=== PATIENT | male | born 1975 | race Caucasian/White ===

== ENCOUNTER 2016-03-15 09:31 | Day surgery (SDC) | payer OTHER ==
[2016-03-15] MEDS ORDERED: Lidocaine PF 1% 5 mL Inj ONE (09:32)
[2016-03-15] MEDS ORDERED: Dexamethasone 10 mg/mL Inj ONE (09:32)
[2016-03-15] MEDS ORDERED: Iohexol 240 mg/mL 10 mL Inj ONE (09:32)
[2016-03-15 10:36] VITALS: BP 132/91; PULSE 78; O2SAT 96
[2016-03-15] MEDS ORDERED: ATEN50TA PO (10:40)
[2016-03-15] MEDS ORDERED: BUPR150T8 PO (10:40)
--- NOTE | 2016-03-15 16:37 | PCM.PROC ---
Procedure Note Date of Service: Mar 15, 2016 Pre Procedure Diagnosis: PROCEDURE: RIGHT C6 transforaminal epidural steroid injection PRE-PROCEDURE DIAGNOSIS: Cervical radiculopathy POST-PROCEDURE DIAGNOSIS: same INDICATION: 40-year-old gentleman with right-sided neck and arm pain consistent with cervical radiculopathy PERFORMED BY: Aditya Conner MD DESCRIPTION OF PROCEDURE: Patient was met in the holding area. Consent was signed, site was confirmed and all questions were answered. Patient was taken to the procedure suite and placed supine on the procedure table. An IV was placed with TKO NS. The appropriate time out in the OR was performed confirming the patient's name, date of , planned procedure, and presence of the appropriate instrumentation. The side of the neck was prepped and draped in sterile fashion. The image intensifier was rotated to an oblique view to visualize the proper neuroforamen. Local anesthesia with 1% lidocaine was injected into the skin and superficial subcutaneous tissue. A 2 inch 25-gauge Quincke spinal needle was advanced towards the inferior/posterior aspect of the neural foramina. After the SAP of the neuroforamina was contacted with the spinal needle the bevel was directed anterior. The view was then changed to an AP view and the tip of the needle was stopped lateral to the sagittal midline of the articular pillar. Radiopaque contrast was injected under live fluoroscopy which demonstrated outline of the spinal nerve, dorsal root ganglion as well as spread into the epidural space. No vascular uptake was noted. 1 cc 1% lidocaine was injected. After 1 minute with no neurologic sequela, 10 mg of Decadron was injected. This was followed by another half cc of 1% lidocaine ANESTHESIA: Local. EBL: None. No Blood Products Used COMPLICATIONS: None SPECIMENS: None POST-PROCEDURE DISPOSITION: Patient was returned to the holding area in stable condition. They were discharged home when all discharge criteria were met. Evaluation/Physical Exam before discharge revealed: Pre-procedure pain: 4/10. Post-procedure pain: 0/10 DISCHARGE MEDICATIONS: (none unless otherwise noted) ASSESSMENT/ FOLLOW UP: Keep scheduled followup Aditya Carranza MD, MD Mar 15, 2016 16:37
== END 2016-03-15 23:59 | disposition home or self-care (01) ==
LOC: END 09:31
PROVIDERS: ATTEND Anesthesiology Pain Medicine
DX: M54.12 Radiculopathy, cervical region (principal); I10 Essential (primary) hypertension; K21.9 Gastro-esophageal reflux disease without esophagitis; F41.9 Anxiety disorder, unspecified; F32.9 Major depressive disorder, single episode, unspecified; F17.210 Nicotine dependence, cigarettes, uncomplicated; Z86.14 Personal history of Methicillin resistant Staphylococcus aureus infection
CPT/HCPCS: 64479; J1100